=== PATIENT | female | born 1960 | race Caucasian/White ===

== ENCOUNTER → 2018-05-28 | Outpatient (CLI) | payer MEDICARE, MEDICAID ==
[~2018-05-28] MED LIST: ALBU18HF IH; AZIT250T89 PO; BENZ-17 PO; CEFD300C37 PO; CEFU500T PO
== END | disposition home or self-care (01) ==
LOC: CFH 10:11
PROVIDERS: ATTEND Nurse Practitioner
DX: M51.16 Intervertebral disc disorders with radiculopathy, lumbar region (principal); M48.061 Spinal stenosis, lumbar region without neurogenic claudication; M25.78 Osteophyte, vertebrae; M12.88 Other specific arthropathies, not elsewhere classified, other specified site; G95.89 Other specified diseases of spinal cord
CPT/HCPCS: 72114; 72148; 72202; 72220

== ENCOUNTER 2019-12-16 22:07 | Inpatient (IN) | payer MEDICARE, MEDICAID ==
[~2019-12-16] VITALS: Ht 160 cm; Wt 91.7 kg
--- NOTE | 2019-12-16 22:32 | NUR ---
PT C/O INCREASING PAIN POST OP AFTER SURGERY ON HER COCCYX. WOUND NOTED TO BE RED, WARM TO THE TOUGH, SWOLLEN, VERY TENDER. PT ALSO REPORTS FEELING FEVERISH OFF AND ON ALL DAY, BUT DID NOT MEASURE. DRESSED IN GOWN, IN BED PROPPED TO LEFT SIDE WITH A PILLOW SHE BROUGHT FROM HOME. DENIES ANY FURTHER NEEDS AT THIS TIME. CALL LIGHT IN REACH.
[2019-12-16] MEDS ORDERED: ONDANSETRON 2MG/ML, 2ML ONE (22:47)
[2019-12-16] MEDS ORDERED: HYDROmorphone 1 MG/ML, 1ML INJ ONE ×2 (22:47→23:22)
[2019-12-16 22:54] LABS: MEAN CORPUSCULAR HEMOGLOBIN 26.6 pg (27.0-34.8); MEAN CORPUSCULAR HGB CONC 31.8 g/dL (32.4-35.8); MEAN CORPUSCULAR VOLUME 83.5 fL (80-100); MEAN PLATELET VOLUME 10.6 fL (7.4-10.4); PLATELET COUNT 216 x10^3/uL (130-400); RED BLOOD COUNT 5.02 x10^6/uL (3.82-5.3); RED CELL DISTRIBUTION WIDTH 15.3 % (9.6-15.2)
[2019-12-16] MEDS: HYDROmorphone 1 MG/ML, 1ML INJ IVPush PRN ×2 (22:55→23:24)
[2019-12-16] MEDS ORDERED: SODIUM CHLORIDE FLUSH 10ML SYR IVF ONE (23:00)
[2019-12-16] MEDS ORDERED: ONDANSETRON 2MG/ML, 2ML IVPush ONE (23:00)
[2019-12-16] MEDS ORDERED: SODIUM CHLORIDE 0.9% 1,000ML IVBOLUS ONE (23:00)
[2019-12-16 23:08] LABS: ALANINE AMINOTRANSFERASE 19 U/L (12-78); ALBUMIN 3.7 g/dL (3.4-5.0); ANION GAP 8 mmol/L (5-15); CALCIUM 9.2 mg/dL (8.5-10.1); CHLORIDE 103 mmol/L (98-107)
[2019-12-16 23:10] LABS: ALKALINE PHOSPHATASE 80 U/L (45-117); BILIRUBIN,TOTAL 0.6 mg/dL (0.2-1.0); TOTAL PROTEIN 7.6 g/dL (6.4-8.2)
[2019-12-16 23:31] LABS: MD YES
[2019-12-16 23:34] LABS: BANDS%(MANUAL) 2 % (0-7); BASOS% (MANUAL) 1 % (0-1); LYMPH#(MANUAL) 1.79 x10^3/uL (1-3.4); LYMPHS% (MANUAL) 9 % (22-44); MONOS#(MANUAL) 1.39 x10^3/uL (0.3-2.7); MONOS% (MANUAL) 7 % (2-9); SEG#(MANUAL) 16.12 x10^3/uL (1.8-6.8); SEGS% (MANUAL) 81 % (42-75)
[2019-12-16 23:35] LABS: <PLATELET ESTIMATE> ADEQUATE; ANISOCYTOSIS 1+; LARGE PLATELETS 1+
[2019-12-16] MEDS ORDERED: OMNIPAQUE 350 MG/ML, 100ML BOTTLE ONE (23:35)
[2019-12-17] MEDS ORDERED: VANCOMYCIN PER PHARMACY MC ONE
[2019-12-17] MEDS ORDERED: PIPERACILLIN/TAZO/PMX 3.375GM 50 ML IVPB ONE
[2019-12-17] MEDS ORDERED: PIPERACILLIN/TAZO/PMX 3.375GM 50 ML ONE ×2 (00:07→00:09)
[2019-12-17] MEDS ORDERED: VANCOMYCIN 1,700 MG in SODIUM CHLORIDE 0.9% 250 ML IV ONE (00:30)
--- NOTE | 2019-12-17 00:43 | NUR ---
SIGNIFICANT OTHER: CRORINE
[2019-12-17] MEDS ORDERED: HYDROcodone/APAP 5/325 TABLET PO PRN ×2 (01:00→14:30)
[2019-12-17] MEDS ORDERED: ACETAMINOPHEN 325 MG TABLET PO PRN ×3 (01:00→14:30)
[2019-12-17] MEDS ORDERED: HYDROmorphone 2 MG/ML, 1ML IVPush PRN (01:00)
[2019-12-17] MEDS ORDERED: VANCOMYCIN PER PHARMACY MC PRN (01:00)
[2019-12-17] MEDS ORDERED: HYDROmorphone 1 MG/ML, 1ML INJ ONE (01:04)
--- NOTE | 2019-12-17 01:31 | NUR ---
REPORT FROM SHANTEL DAS. PT MEDICATED FOR PAIN AND GIVEN AN ICE PACK
[2019-12-17 02:00] VITALS: BP 104/71
[2019-12-17] MEDS ORDERED: PHARMACOKINETIC CONSULTATION MC ONE (02:30)
[2019-12-17] MEDS ORDERED: PHARMACOKINETIC MONITORING MC PRN (02:30)
[2019-12-17] MEDS: morphine SULFATE 10 MG/ML, 1ML IVPush PRN ×5 (02:40→18:22)
[2019-12-17] MEDS: HEPARIN 5,000 UNITS/ML, 1ML SQ SCH ×3 (02:41→20:22)
[2019-12-17] MEDS: SODIUM CHLORIDE 0.9% 1,000 ML IV SCH ×2 (02:44→10:37)
[2019-12-17 07:09] VITALS: BP 92/60
[2019-12-17] MEDS: PIPERACILLIN/TAZO/PMX 4.5GM 100 ML IV SCH ×3 (07:22→18:45)
[2019-12-17] MEDS ORDERED: SENNA/DOCUSATE TABLET PO SCH (09:00)
[2019-12-17] MEDS ORDERED: CHLORHEXIDINE 15 ML UDC MM ONE (12:30)
[2019-12-17] MEDS ORDERED: CHLORHEXIDINE 15 ML UDC ONE (12:30)
[2019-12-17] MEDS ORDERED: MIDAZOLAM 1 MG/ML, 2ML ONE (12:44)
[2019-12-17] MEDS ORDERED: FENTANYL PF 250 MCG/5ML ONE (12:45)
[2019-12-17] MEDS ORDERED: MEPERIDINE/PF 25MG/0.5ML IVPush PRN (13:00)
[2019-12-17] MEDS ORDERED: ONDANSETRON 2MG/ML, 2ML IVPush PRN ×2 (13:00→14:30)
[2019-12-17] MEDS ORDERED: ROCURONIUM 10 MG/ML,10ML ONE (13:13)
[2019-12-17] MEDS ORDERED: ONDANSETRON 2MG/ML, 2ML ONE (13:13)
[2019-12-17] MEDS ORDERED: SUCCINYLCHOLINE 20 MG/ML, 10ML ONE (13:13)
[2019-12-17] MEDS ORDERED: DEXAMETHASONE 4 MG/ML, 1ML ONE (13:13)
[2019-12-17] MEDS ORDERED: PROPOFOL 10 MG/ML, 20ML ONE (13:13)
[2019-12-17] MEDS ORDERED: CEFAZOLIN 1,000 MG ONE (13:13)
[2019-12-17] MEDS ORDERED: VANCOMYCIN 1,000 MG ONE (13:43)
[2019-12-17] MEDS ORDERED: FENTANYL PF 100 MCG/2ML ONE ×2 (14:15→15:02)
[2019-12-17] MEDS: FENTANYL PF 100 MCG/2ML IV PRN ×2 (14:24→14:56)
[2019-12-17] MEDS ORDERED: MAGNESIUM HYDROXIDE 8%, 30ML UDC PO PRN (14:30)
[2019-12-17] MEDS ORDERED: PROMETHAZINE 25 MG/ML, 1ML IM PRN (14:30)
[2019-12-17] MEDS ORDERED: HYDROmorphone 1 MG/ML, 1ML INJ IVPush PRN (14:30)
[2019-12-17] MEDS ORDERED: BISACODYL 10 MG SUPP PR PRN (14:30)
[2019-12-17] MEDS ORDERED: PHARMACY MAY ADJ FOR RENAL FX MC PRN (14:30)
[2019-12-17] MEDS ORDERED: DIPHENHYDRAMINE 50 MG/ML, 1ML IVPush PRN (14:30)
[2019-12-17] MEDS: HYDROmorphone 1 MG/ML, 1ML INJ IVPush PRN ×4 (14:31→14:57)
[2019-12-17] MEDS ORDERED: HYDROmorphone 2 MG/ML, 1ML ONE (14:37)
[2019-12-17] MEDS ORDERED: OXYcodone 5 MG/5 ML ORAL.SOL UDC ONE (14:37)
[2019-12-17] MEDS ORDERED: OXYcodone 5 MG/5 ML ORAL.SOL UDC PO ONE (15:00)
[2019-12-17] MEDS ORDERED: DIPHENHYDRAMINE 50 MG/ML, 1ML ONE (15:02)
[2019-12-17] MEDS: VANCOMYCIN 1,300 MG in SODIUM CHLORIDE 0.9% 250 ML IV SCH (16:52)
[2019-12-17 18:57] VITALS: BP 106/68
[2019-12-17] MEDS: METHOCARBAMOL 750 MG TABLET PO PRN (20:22)
[2019-12-17] MEDS: HYDROcodone/APAP 10/325 MG TABLET PO PRN ×2 (20:22→20:58)
[2019-12-17] MEDS: SENNA/DOCUSATE TABLET PO PRN (20:31)
[2019-12-17 23:07] VITALS: BP 91/54
[2019-12-18] MEDS: PIPERACILLIN/TAZO/PMX 4.5GM 100 ML IV SCH ×5 (00:45→20:21)
[2019-12-18] MEDS: HYDROcodone/APAP 10/325 MG TABLET PO PRN ×6 (00:59→22:51)
[2019-12-18] MEDS ORDERED: VANCOMYCIN 1,600 MG in SODIUM CHLORIDE 0.9% 250 ML IV SCH (02:00)
[2019-12-18] MEDS: VANCOMYCIN 1,300 MG in SODIUM CHLORIDE 0.9% 250 ML IV SCH ×2 (03:11→15:57)
[2019-12-18 03:26] VITALS: BP 111/67
[2019-12-18] MEDS: METHOCARBAMOL 750 MG TABLET PO PRN ×3 (04:36→22:50)
[2019-12-18] MEDS: HEPARIN 5,000 UNITS/ML, 1ML SQ SCH ×3 (04:39→20:22)
[2019-12-18 05:22] LABS: MEAN CORPUSCULAR HEMOGLOBIN 26.9 pg (27.0-34.8); MEAN CORPUSCULAR HGB CONC 32.1 g/dL (32.4-35.8); MEAN CORPUSCULAR VOLUME 83.6 fL (80-100); MEAN PLATELET VOLUME 11.8 fL (7.4-10.4); PLATELET COUNT 133 x10^3/uL (130-400); RED BLOOD COUNT 3.68 x10^6/uL (3.82-5.3); RED CELL DISTRIBUTION WIDTH 15.2 % (9.6-15.2)
[2019-12-18 05:24] LABS: ANION GAP 5 mmol/L (5-15); CALCIUM 8.6 mg/dL (8.5-10.1); CHLORIDE 108 mmol/L (98-107); CREATININE 0.94 mg/dL (0.55-1.02)
[2019-12-18 06:09] LABS: BASOPHILS # (AUTO) 0.01 x10^3/uL (0-0.1); BASOPHILS % (AUTO) 0 % (0-1); EOSINOPHILS % (AUTO) 0 % (1-7); LYMPHOCYTES # (AUTO) 0.96 x10^3/uL (1-3.4); LYMPHOCYTES % (AUTO) 5 % (22-44); MD SCAN; MONOCYTES # (AUTO) 1.33 x10^3/uL (0.2-0.8); MONOCYTES % (AUTO) 7 % (2-9); NEUTROPHILS # (AUTO) 16.15 x10^3/uL (1.8-6.8); NEUTROPHILS % (AUTO) 88 % (42-75)
[2019-12-18 07:41] VITALS: BP 116/59
[2019-12-18] MEDS ORDERED: LORazepam 2 MG/ML, 1ML IVPush ONE (13:00)
[2019-12-18 15:54] VITALS: BP 91/54
[2019-12-18] MEDS: ACYCLOVIR 400 MG TABLET PO SCH ×2 (16:00→20:21)
[2019-12-18] MEDS ORDERED: LORazepam 2 MG/ML, 1ML IVPush PRN (16:30)
[2019-12-18 19:25] VITALS: BP 109/60
[2019-12-19] MEDS: PIPERACILLIN/TAZO/PMX 4.5GM 100 ML IV SCH ×4 (02:02→20:48)
[2019-12-19 02:15] VITALS: BP 84/51
[2019-12-19] MEDS: VANCOMYCIN 1,300 MG in SODIUM CHLORIDE 0.9% 250 ML IV SCH ×2 (04:20→15:45)
[2019-12-19] MEDS: HEPARIN 5,000 UNITS/ML, 1ML SQ SCH ×3 (04:20→20:48)
[2019-12-19] MEDS: HYDROcodone/APAP 10/325 MG TABLET PO PRN ×4 (04:21→18:49)
[2019-12-19 06:59] VITALS: BP 117/67
[2019-12-19] MEDS: SENNA/DOCUSATE TABLET PO PRN (07:54)
[2019-12-19] MEDS: METHOCARBAMOL 750 MG TABLET PO PRN ×2 (07:54→20:48)
[2019-12-19] MEDS: ACYCLOVIR 400 MG TABLET PO SCH ×3 (10:08→20:48)
[2019-12-19 13:11] VITALS: BP 103/68
[2019-12-19] MEDS ORDERED: LORazepam 2 MG/ML, 1ML IVPush ONE (13:30)
[2019-12-19] MEDS ORDERED: LIDOCAINE 4% CREAM 5GM TUBE TP PRN (13:30)
[2019-12-19] MEDS: LIDOCAINE 4% CREAM 15GM TUBE TP PRN ×2 (14:58→18:50)
[2019-12-19 19:24] VITALS: BP 118/74
[2019-12-20] MEDS: HYDROcodone/APAP 10/325 MG TABLET PO PRN ×6 (00:22→23:01)
[2019-12-20] MEDS: LIDOCAINE 4% CREAM 15GM TUBE TP PRN ×3 (00:28→16:14)
[2019-12-20] MEDS ORDERED: LORazepam 1MG TABLET PO ONE (00:50)
[2019-12-20] MEDS ORDERED: LORazepam 1MG TABLET ONE (00:52)
[2019-12-20 00:57] VITALS: BP 135/80
[2019-12-20] MEDS: PIPERACILLIN/TAZO/PMX 4.5GM 100 ML IV SCH ×4 (02:17→20:35)
[2019-12-20] MEDS: VANCOMYCIN 1,300 MG in SODIUM CHLORIDE 0.9% 250 ML IV SCH ×2 (03:51→16:14)
[2019-12-20] MEDS: HEPARIN 5,000 UNITS/ML, 1ML SQ SCH ×3 (04:55→17:08)
[2019-12-20 07:36] VITALS: BP 128/77
[2019-12-20] MEDS: ACYCLOVIR 400 MG TABLET PO SCH ×3 (08:05→20:34)
[2019-12-20 13:55] VITALS: BP 122/67
[2019-12-20] MEDS: METHOCARBAMOL 750 MG TABLET PO PRN (20:53)
[2019-12-20 20:56] VITALS: BP 137/84
[2019-12-21] MEDS: LIDOCAINE 4% CREAM 15GM TUBE TP PRN (02:58)
[2019-12-21] MEDS: PIPERACILLIN/TAZO/PMX 4.5GM 100 ML IV SCH ×2 (02:58→08:29)
[2019-12-21] MEDS: HYDROcodone/APAP 10/325 MG TABLET PO PRN ×2 (03:00→07:15)
[2019-12-21 03:11] VITALS: BP 136/73
[2019-12-21] MEDS: VANCOMYCIN 1,300 MG in SODIUM CHLORIDE 0.9% 250 ML IV SCH (04:11)
[2019-12-21] MEDS: METHOCARBAMOL 750 MG TABLET PO PRN (05:11)
[2019-12-21] MEDS: HEPARIN 5,000 UNITS/ML, 1ML SQ SCH (05:12)
[2019-12-21 08:00] VITALS: BP 137/78
[2019-12-21] MEDS: ACYCLOVIR 400 MG TABLET PO SCH (08:33)
[2019-12-21] MEDS ORDERED: ACYC-114 PO (09:37)
[2019-12-21] MEDS ORDERED: HYDR-826 PO (09:37)
[2019-12-21] MEDS ORDERED: HYDR-3245 PO (09:37)
[2019-12-21] MEDS ORDERED: SULF1TAB24 PO (09:37)
[2019-12-21] MEDS ORDERED: ALPR0.5T7 PO (09:42)
[2019-12-21] MEDS ORDERED: ALUMINUM/MAG/SIMETHICONE 30 ML UDC ONE (10:29)
[2019-12-21] MEDS ORDERED: ALUMINUM/MAG/SIMETHICONE 30 ML UDC PO PRN (10:30)
[2019-12-21 10:31] VITALS: BP 136/73
== END 2019-12-21 11:15 | disposition home or self-care (01) | DRG 856 ==
LOC: ED 12-17 02:00 → 3N 12-17 02:01 → 4NE 12-17 10:30 → DCLOUNGE 12-21 11:03
PROVIDERS: ADMIT Family Medicine; ATTEND Family Medicine
PROC: 0JB70ZZ Excision of Back Subcutaneous Tissue and Fascia, Open Approach (ICD-10-PCS; principal; 2019-12-17 14:00)
DX: T81.41XA Infection following a procedure, superficial incisional surgical site, initial encounter (principal); A41.9 Sepsis, unspecified organism; T81.30XA Disruption of wound, unspecified, initial encounter; L02.212 Cutaneous abscess of back [any part, except buttock and flank]; Z20.828 Contact with and (suspected) exposure to other viral communicable diseases; Z91.040 Latex allergy status; Z91.048 Other nonmedicinal substance allergy status; F41.9 Anxiety disorder, unspecified; J44.9 Chronic obstructive pulmonary disease, unspecified; Z87.891 Personal history of nicotine dependence; Z90.710 Acquired absence of both cervix and uterus
CPT/HCPCS: 36415; 72193; 80048; 80053; 80202; 83605; 84145; 85025; 87040; 87070; 87075; 87077; 87147; 87186; 87205; 87635; 96361; 96365; 96375; 96376; 99291; G0378; J0690; J1100; J1170; J1644; J2250; J2405; J2543; J2704; J3010; J3370; Q9967; J0330; J1200; J2060; J2270; J7030; J7050; Q0177

== ENCOUNTER 2020-07-26 11:37 | Emergency (ER) | payer MEDICARE, MEDICAID ==
[~2020-07-26] VITALS: Ht 160 cm; Wt 92.3 kg
[~2020-07-26 11:37] MED LIST changes: +ACYC-40 PO; +ALPR0.5T7 PO; +HYDR-826 PO; +HYDR1TAB53 PO; +SULF-23 PO
[2020-07-26 13:26] LABS: BASOPHILS % (AUTO) 2 % (0-1); EOSINOPHILS % (AUTO) 4 % (1-7); LYMPHOCYTES % (AUTO) 27 % (22-44); MEAN CORPUSCULAR HEMOGLOBIN 26.4 pg (27.0-34.8); MEAN CORPUSCULAR HGB CONC 32.3 g/dL (32.4-35.8); MEAN PLATELET VOLUME 9.8 fL (7.4-10.4); MONOCYTES % (AUTO) 11 % (2-9); NEUTROPHILS % (AUTO) 57 % (42-75); PLATELET COUNT 181 x10^3/uL (130-400); RED BLOOD COUNT 4.77 x10^6/uL (3.82-5.3); RED CELL DISTRIBUTION WIDTH 16.3 % (9.6-15.2)
[2020-07-26] MEDS ORDERED: HYDROmorphone 1 MG/ML, 1ML INJ IM ONE (13:30)
[2020-07-26 13:37] LABS: CHLORIDE 108 mmol/L (98-107)
[2020-07-26 13:42] LABS: ALANINE AMINOTRANSFERASE 32 U/L (12-78); ALBUMIN 3.6 g/dL (3.4-5.0); ALKALINE PHOSPHATASE 79 U/L (45-117); ANION GAP 3 mmol/L (5-15); BILIRUBIN,TOTAL 0.2 mg/dL (0.2-1.0); CALCIUM 8.8 mg/dL (8.5-10.1); CREATININE 0.78 mg/dL (0.55-1.02); TOTAL PROTEIN 6.6 g/dL (6.4-8.2)
[2020-07-26] MEDS ORDERED: HYDROmorphone 1 MG/ML, 1ML INJ ONE (13:55)
--- NOTE | 2020-07-26 14:03 | NUR ---
LATE ENTRY DUE TO PATIENT CARE: FIRST CONTACT WITH PT. PT C/O RIGHT SIDED UNDER BREAST PAIN X FOR A LONG TIME. PT DENIES N/V/D. PT'S AOX4. RESPS EVEN AND UNLABORED. BP/SPO2 MONITORS IN PLACE. CALL LIGHT WITHIN REACH. US AT BEDSIDE AT THIS TIME.
--- NOTE | 2020-07-26 14:04 | NUR ---
LATE ENTRY DUE TO PATIENT CARE: PT MEDICATED PER EMAR. PT TOLERATED WELL.
[2020-07-26 14:29] LABS: MICROSCOPIC NOT IND
[2020-07-26 15:45] VITALS: BP 118/70
--- NOTE | 2020-07-26 15:46 | NUR ---
PT RESTING IN [facility]. PT'S AOX4. RESPS EVEN AND UNLABORED. PT DENIES ANY NEEDS OR CONCERNS AT THIS TIME.
--- NOTE | 2020-07-26 16:33 | NUR ---
THIS RN ATTEMPTED TO DC AND PT STATED "I NEED STRONG PAIN MEDS. I NEED MORE TESTS. CAN YOU TALK TO DOCTOR?" THIS RN DISCUSSED WITH EDMD AND EDMD STATED "SHE HAS CHRONINC PROBLEM. SHE NEEDS TO FOLLOW UP WITH PRIMARY. SHE CAN GO HOME TODAY."
--- NOTE | 2020-07-26 16:42 | NUR ---
Patient given discharge instructions and they have confirmed that they understand the instructions. Patient ambulatory with steady gait.
== END 2020-07-26 16:43 | disposition home or self-care (01) ==
LOC: ED 13:41
DX: R10.11 Right upper quadrant pain (principal); R07.81 Pleurodynia; G89.29 Other chronic pain; R94.31 Abnormal electrocardiogram [ECG] [EKG]; J44.9 Chronic obstructive pulmonary disease, unspecified; Z90.710 Acquired absence of both cervix and uterus; Z87.891 Personal history of nicotine dependence
CPT/HCPCS: 36415; 76700; 80053; 81003; 83690; 85025; 93005; 96372; 99285; J1170

== ENCOUNTER 2020-09-20 09:20 | Emergency (ER) | payer MEDICARE, MEDICAID ==
[~2020-09-20] VITALS: Ht 129.5 cm; Wt 90.8 kg
[2020-09-20 09:29] VITALS: BP 147/87
== END 2020-09-20 11:51 | disposition home or self-care (01) ==
LOC: ED 11:02
DX: B02.9 Zoster without complications (principal); J44.9 Chronic obstructive pulmonary disease, unspecified; Z87.891 Personal history of nicotine dependence
CPT/HCPCS: 99283

== ENCOUNTER → 2020-11-11 | Outpatient (CLI) | payer MEDICARE, MEDICAID ==
[~2020-11-11] MED LIST changes: +OMNIPAQUE 350 MG/ML, 100ML BOTTLE ONE
== END | disposition home or self-care (01) ==
LOC: CFH 12:12
PROVIDERS: ATTEND Family Medicine
DX: N20.0 Calculus of kidney (principal)
CPT/HCPCS: 74160; Q9967